=== PATIENT | female | born 1990 | race Caucasian/White ===

== ENCOUNTER → 2016-10-17 | Outpatient (CLI) | payer SELFPAY | LOC: LABWHC1 14:19 | PROVIDERS: ATTEND Family Medicine | DX: E04.9 Nontoxic goiter, unspecified (principal) | CPT/HCPCS: 36415; 84439; 84443; 86376; 86800 ==

== ENCOUNTER → 2016-10-31 | Outpatient (CLI) | payer SELFPAY ==
--- NOTE | 2016-11-01 09:18 | US ---
EXAMINATION TYPE: US thyroid st tissue head/neck DATE OF EXAM: 10/31/2016 4:46 PM COMPARISON: NONE CLINICAL HISTORY: E04.1 thyroid nodule. Palpable left anterior neck GLAND SIZE: Right Lobe: 5.1 x 1.2 x 1.6 cm Overall Parenchyma: homogenous Left Lobe: 4.4 x 2.0 x 2.2 cm Overall Parenchyma: homogeneous Isthmus Thickness: 0.3 cm NODULES RIGHT: # of nodules measured on right: 0 LEFT: # of nodules measured on left: 1 1. 2.1 X 1.8 x 1.7 cm isoechoic solid nodule at the mid pole with well-defined margins; . This nod ule is wider than tall and shows intranodular vascularity. Prior size: no prior ISTHMUS: # of nodules measured in the isthmus: 0 Bilateral neck scanned, no evidence of lymphadenopathy. IMPRESSION: 1. THYROMEGALY. 2. 2.1 CM LEFT-SIDED THYROID NODULE. CONSIDERATION MIGHT BE GIVEN TO BIOPSY.
== END ==
LOC: RADUSWWP 16:21
PROVIDERS: ATTEND Family Medicine
DX: E04.1 Nontoxic single thyroid nodule (principal); E01.0 Iodine-deficiency related diffuse (endemic) goiter
CPT/HCPCS: 76536

== ENCOUNTER 2017-01-06 12:22 | Day surgery (SDC) | payer SELFPAY ==
[2017-01-06 12:35] VITALS: RESP 14; TEMP 98.2
[2017-01-06 13:57] VITALS: BP 102/78; PULSE 61
--- NOTE | 2017-01-06 17:48 | US ---
EXAMINATION TYPE: US FNA thyroid DATE OF EXAM: 01/06/2017 COMPARISON: NONE HISTORY: Thyroid nodule, E04.1 Maximal barrier technique was utilized. Ultrasound using sterile technique. The skin overlying the no dule was localized with ultrasound and the overlying skin prepped and draped. Lidocaine used for loca l anesthesia. 5 passes with a 25-gauge needle were made into the nodule under ultrasound guidance. As pirate specimen submitted to cytology. Following the procedure hemostasis achieved. No immediate comp lication IMPRESSION: Status post ultrasound-guided fine-needle aspiration of thyroid nodule, pathology pending .
== END 2017-01-06 13:59 | disposition home or self-care (01) ==
LOC: RADPROMAIN 12:22
PROVIDERS: ATTEND Surgery
DX: E04.1 Nontoxic single thyroid nodule (principal)
CPT/HCPCS: 10022; 76942; 88173; 88305

== ENCOUNTER → 2017-06-20 | Outpatient (CLI) | payer SELFPAY ==
[2017-06-20 11:08] LABS: CHCM 33.6; HCT 33.2 % (34.0-46.0); HDW 2.41; HGB 10.8 gm/dL (11.4-16.0); MCH 30.9 pg (25.0-35.0); MCHC 32.4 g/dL (31.0-37.0); MCV 95.5 fL (80.0-100.0); Mean Platelet Volume 7.4; RBC 3.48 m/uL (3.80-5.40); RDW 12.5 % (11.5-15.5); WBC 4.8 k/uL (3.8-10.6)
[2017-06-20 11:12] LABS: Amorphous Sediment,Urine Occasional /hpf; Appearance,Urine Cloudy (Clear); Bilirubin,Urine Negative (Negative); Glucose,Urine (UA) Negative (Negative); Ketones,Urine Negative (Negative); Leukocyte Esterase,Urine Trace (Negative); Mucus,Urine Rare /hpf; Nitrite,Urine Negative (Negative); Particle Count 4467; Protein,Urine Negative (Negative); Specific Gravity,Urine 1.014 (1.001-1.035); Squamous Epithelial Cell,Urine 3 /hpf (0-4); UA Billing (MACRO vs. MICRO) MICRO; Urobilinogen,Urine <2.0 mg/dL (<2.0); WBC,Urine 2 /hpf (0-5)
[2017-06-20 11:22] LABS: Glucose 85 mg/dL (74-99); Non-African American GFR(MDRD) >60 (>60 ml/min/1.73 sqM)
[2017-06-20 16:05] LABS: Treponemal Ab Non-Reactive (Non-Reactive)
== END | disposition home or self-care (01) ==
LOC: LABWHC1 10:07
PROVIDERS: ATTEND Obstetrics & Gynecology
DX: Z34.81 Encounter for supervision of other normal pregnancy, first trimester (principal); Z3A.00 Weeks of gestation of pregnancy not specified
CPT/HCPCS: 36415; 81001; 82565; 82947; 85027; 86762; 86780; 86850; 86900; 86901; 87086; 87340

== ENCOUNTER → 2017-08-01 | Outpatient (CLI) | payer BC ==
[2017-08-04 10:11] LABS: Alpha Fetoprotein (M.O.M) 0.58; B-HCG (M.O.M.) 1.47; Gestational Age (days) 1; Human Chorionic Gonadotropin 32.1 IU/mL; Inhibin A (M.O.M.) 0.71; Maternal Age at EDD (Yrs) 29; Smoker No
== END | disposition home or self-care (01) ==
LOC: LABWHC1 09:58
PROVIDERS: ATTEND Obstetrics & Gynecology
DX: Z34.82 Encounter for supervision of other normal pregnancy, second trimester (principal); Z3A.00 Weeks of gestation of pregnancy not specified
CPT/HCPCS: 36415; 82105; 82677; 84702; 86336

== ENCOUNTER → 2017-08-06 | Outpatient (CLI) | payer BC ==
--- NOTE | 2017-08-06 11:21 | US ---
EXAMINATION TYPE: US thyroid st tissue head/neck DATE OF EXAM: 08/06/2017 COMPARISON: 01/06/2017 and 10/31/2016 CLINICAL HISTORY: E04.1 THYROID NODULE. Follow up thyroid nodule GLAND SIZE: Right Lobe: 5.9 x 1.7 x 1.9 cm Overall Parenchyma: homogenous Left Lobe: 5.5 x 2.0 x 1.9 cm Overall Parenchyma: homogeneous Isthmus Thickness: 0.3 cm NODULES RIGHT: # of nodules measured on right: 0 LEFT: # of nodules measured on left: 1 1. 2.4 X 1.9 x 1.8 cm isoechoic mixed nodule at the mid pole with well-defined margins; . This nod ule is wider than tall and shows intranodular vascularity. Prior size: 2.1 x 1.8 x 1.7 cm ISTHMUS: # of nodules measured in the isthmus: 0 Bilateral neck scanned, no evidence of lymphadenopathy. Enlarged thyroid. Single nodule noted left lobe IMPRESSION: Minimal interval growth of the previously biopsied left thyroid nodule on background thyromegaly. Handy veillance is recommended.
== END | disposition home or self-care (01) ==
LOC: RADUSWWP 10:13
PROVIDERS: ATTEND Surgery
DX: E04.1 Nontoxic single thyroid nodule (principal)
CPT/HCPCS: 76536

== ENCOUNTER 2017-08-28 12:08 | Day surgery (SDC) | payer BC ==
[2017-08-28 12:49] VITALS: TEMP 98
[2017-08-28 13:46] VITALS: RESP 16
[2017-08-28 13:47] VITALS: BP 99/54; PULSE 75
--- NOTE | 2017-08-28 14:31 | US ---
ULTRASOUND GUIDED FNA THYROID BIOPSY: CLINICAL HISTORY: Left thyroid nodule FINDINGS: The procedure was explained to the patient. The risks, complications, benefits and alternatives were discussed and any questions were answered. Informed consent was obtained. Patient was placed supin e on the ultrasound table and prepped and draped in the usual sterile fashion. Utilizing a 25 gauge needle, five passes were made into the requested left thyroid nodule. Patient was stable throughout the procedure. Pathology is pending. All elements of maximal barrier technique were utilized. IMPRESSION: 1. Successful ultrasound guided FNA thyroid biopsy.
== END 2017-08-28 13:50 | disposition home or self-care (01) ==
LOC: RADPROMAIN 12:08
PROVIDERS: ATTEND Surgery
DX: E04.1 Nontoxic single thyroid nodule (principal)
CPT/HCPCS: 10022; 76942; 88173; 88305

== ENCOUNTER → 2017-09-17 | Outpatient (CLI) | payer BC ==
[2017-09-17 11:12] LABS: HCT 30.6 % (34.0-46.0); HGB 9.8 gm/dL (11.4-16.0); MCH 31.6 pg (25.0-35.0); MCHC 32.2 g/dL (31.0-37.0); MCV 98.2 fL (80.0-100.0); Mean Platelet Volume 7.9; Platelet Count 260 k/uL (150-450); RBC 3.12 m/uL (3.80-5.40); RDW 12.9 % (11.5-15.5); WBC 7.3 k/uL (3.8-10.6)
[2017-09-17 11:41] LABS: T4, Free (Free Thyroxine) 0.75 ng/dL (0.78-2.19)
== END | disposition home or self-care (01) ==
LOC: LABWHC1 09:51
PROVIDERS: ATTEND Obstetrics & Gynecology
DX: Z34.82 Encounter for supervision of other normal pregnancy, second trimester (principal)
CPT/HCPCS: 36415; 82950; 84439; 84443; 84481; 85027

== ENCOUNTER → 2017-12-02 | Outpatient (CLI) | payer BC ==
[2017-12-02 11:26] LABS: T4, Free (Free Thyroxine) 0.68 ng/dL (0.78-2.19)
== END | disposition home or self-care (01) ==
LOC: LABWHC1 10:29
PROVIDERS: ATTEND Obstetrics & Gynecology
DX: E06.9 Thyroiditis, unspecified (principal)
CPT/HCPCS: 36415; 84439; 84443; 84481

== ENCOUNTER 2017-12-12 12:05 | Outpatient (CLI) | payer BC ==
[2017-12-12 13:26] VITALS: BP 112/68; PULSE 85; RESP 16; TEMP 98
--- NOTE | 2017-12-12 15:48 | P.MSEPDOC ---
Presenting Problems - Arrival Data Date of Arrival on Unit: 12/12/17 Time of Arrival on Unit: 12:05 Mode of Transport: Ambulatory - Complaint OB-Reason for Admission/Chief Complaint: Decreased Movement Medical History - Information : 6 Para: 2 Term: 2 : 2 Abortions: Spontaneous or Elective: 3 Number of Living Children: 2 - Gestational Age Gestational Age by NA (wks/days): 38 Weeks and 1 Days Review of Systems - Review of Systems Constitutional: No problems Breast: No problems ENT: No problems Cardiovascular: No problems Respiratory: No problems Gastrointestinal: No problems Genitourinary: No problems Musculoskeletal: No problems Neurological: No problems Skin: No problems Vital Signs - Temperature Temperature: 98.0 F Temperature Source: Temporal Artery Scan - Pulse Right Brachial Pulse Rate: 85 Pulse Assessment Method: Automatic Cuff - Respirations Respiratory Rate: 16 Oxygen Delivery Method: Room Air O2 Sat by Pulse Oximetry: 98 - Blood Pressure Right Arm Blood Pressure: 112/68 Blood Pressure Mean: 82 Blood Pressure Source: Automatic Cuff Medical Screen Scoring (Pre) - Cervical Exam Dilation: 1-3 cm = 1 Effacement: More than 50% = 2 Membranes: Intact - Uterine Contractions Frequency: > 5 minutes apart = 1 Duration: > 40 seconds = 2 Intensity: N/A - Maternal Vital Signs Maternal Temperature: N/A Maternal Blood Pressure: N/A Signs of Preeclampsia: N/A Maternal Respirations: N/A - Pain Assessment Pain Scale Used: Numeric (1 - 10) Pain Intensity: 0 - Maternal Trauma Maternal Trauma: N/A - Assessment Baseline FHR: 115 Heart Rate - NICHD Category: Category I (Normal) = 0 NST: Reactive Position: N/A Station: N/A - Total Score Total Score (Pre): 6 - Level of Risk Level of Risk: Medium (6-9) Physician Notification (Pre) - Physician Notified Physician Notified Date: 12/12/17 Physician Notified Time: 12:45 Physician/Practitioner Notifed:: Dr Peter Spoke With: Dr Peter New Order Received: Yes (ky home) - Notification Comment Comment: pts cervical exam same as one performed at last appt, pt has another appt scheduled Sunday 12/17 Disposition - Disposition OB Disposition: Discharge to home, Written follow up instructions reviewed Discharge Date: 05/25/18 Discharge Time: 12:47 I agree with the RN Medical Screening Exam: Yes Risk & Benefit of care provided described in d/c instruction: Yes Diagnosis: DECREASED MOVEMENTS, THIRD TRIMESTER, FETUS 1
== END 2017-12-12 12:47 | disposition home or self-care (01) ==
LOC: FBPOP 12:05
PROVIDERS: ATTEND Obstetrics & Gynecology
DX: O36.8130 Decreased fetal movements, third trimester, not applicable or unspecified (principal); Z3A.38 38 weeks gestation of pregnancy
CPT/HCPCS: 59025; 99213

== ENCOUNTER 2017-12-25 06:15 | Inpatient (IN) | payer BC ==
[2017-12-25] MEDS ORDERED: TERBUTALINE 1 MG/ML VIAL SQ PRN (07:04)
[2017-12-25] MEDS ORDERED: OXYTOCIN 10 UNIT/ML 1 ML VIAL IM PRN (07:04)
[2017-12-25] MEDS ORDERED: METHYLERGONOVINE 0.2 MG/ML 1 ML AMP IM PRN (07:04)
[2017-12-25] MEDS ORDERED: LIDOCAINE 1% (PF) 10 MG/ML (30 ML SDV) SQ PRN (07:04)
[2017-12-25] MEDS ORDERED: CARBOPROST TROMETHAMINE 250 MCG/ML 1 ML AMP IM PRN (07:04)
[2017-12-25] MEDS ORDERED: OXYTOCIN 20 UNITS/1000 ML NS 1,000 ML IV SCH (07:04)
[2017-12-25 07:24] LABS: Basophils % (A) 1 %; Eosinophils % (A) 1 %; HCT 29.1 % (34.0-46.0); HGB 9.7 gm/dL (11.4-16.0); Lymphocytes # (A) 1.3 k/uL (1.0-4.8); Lymphocytes % (A) 20 %; MCH 30.6 pg (25.0-35.0); MCHC 33.3 g/dL (31.0-37.0); Mean Platelet Volume 7.4; Monocytes # (A) 0.5 k/uL (0-1.0); Monocytes % (A) 7 %; Neutrophils # (A) 4.5 k/uL (1.3-7.7); Neutrophils % (A) 69 %; Platelet Count 227 k/uL (150-450); RBC 3.17 m/uL (3.80-5.40); RDW 14.2 % (11.5-15.5); WBC 6.5 k/uL (3.8-10.6)
[2017-12-25 07:38] VITALS: BMI 27.1
[2017-12-25] MEDS: LACTATED RINGERS 1,000 ML IV SCH ×2 (08:06→10:56)
[2017-12-25] MEDS ORDERED: fentaNYL (PF) 50 MCG/ML 5 ML AMP ONE (11:00)
[2017-12-25] MEDS ORDERED: BUPIVACAINE (PF) 0.25% 30 ML VIAL ONE (11:00)
[2017-12-25] MEDS ORDERED: SODIUM CHLORIDE 0.9% 100 ML BAG ONE (11:00)
[2017-12-25] MEDS ORDERED: ROPIVACAINE 100 MG, fentaNYL (PF) 200 MCG in SODIUM CHLORIDE 0.9% 76 ML EPIDURAL ONE (11:35)
[2017-12-25] MEDS ORDERED: diphenhydrAMINE 50 MG CAP PO PRN (13:06)
[2017-12-25] MEDS ORDERED: ZOLPIDEM 5 MG TAB PO PRN (13:06)
[2017-12-25] MEDS ORDERED: diphenhydrAMINE 25 MG CAP PO PRN (13:06)
[2017-12-25] MEDS ORDERED: WITCH HAZEL 1 EACH MED..PAD TOPICAL PRN (13:06)
[2017-12-25] MEDS ORDERED: ACETAMINOPHEN TAB 325 MG TAB PO PRN (13:06)
[2017-12-25] MEDS ORDERED: LANOLIN CREAM 5 GM TUBE TOPICAL PRN (13:06)
[2017-12-25] MEDS ORDERED: HYDROCORTISONE 2.5% RECTAL CREAM 30 GM TUBE RECTAL PRN (13:06)
[2017-12-25] MEDS ORDERED: SIMETHICONE 80 MG CHEWABLE PO PRN (13:06)
[2017-12-25] MEDS ORDERED: BENZOCAINE/MENTHOL SPRAY 1 GM/SPRAY AEROSOL TOPICAL PRN (13:06)
--- NOTE | 2017-12-25 13:20 | P.HPOB ---
History of Present Illness H&P Date: 12/25/17 Chief Complaint: Intrauterine at term Julieth is a 27-year-old at 40 weeks gestation arise for induction of labor. Her Precis course has been unremarkable and she is feeling well at this time. Her pertinent labs include a B+ blood type Rh and it was negative, rubella immune, hepatitis B surface antigen were both negative group B strep however was positive. Patient's been followed closely throughout the and voices no complaints this time. It is noted that she did have some thyroid issues during the however after discussion with maternal medicine was decided that since she was subclinical no treatment will be given during the but will be retested after she's had the baby. Past Medical History Past Medical History: Thyroid Disorder Additional Past Medical History / Comment(s): molar , frequent nausea, thyroid nodules History of Any Multi-Drug Resistant Organisms: None Reported Past Surgical History: Orthopedic Surgery Additional Past Surgical History / Comment(s): repair right arm fx, d&C Past Anesthesia/Blood Transfusion Reactions: No Reported Reaction Past Psychological History: No Psychological Hx Reported Smoking Status: Never smoker Past Alcohol Use History: None Reported, Occasional Past Drug Use History: None Reported - Past Family History Mother Family Medical History: Thyroid Disorder Medications and Allergies Home Medications Medication Instructions Recorded Confirmed Type Pnv No.95/Ferrous Fum/Folic AC 1 each PO DAILY 08/19/17 12/25/17 History [ Multivitamin Tablet] Allergies Allergy/AdvReac Type Severity Reaction Status Date / Time No Known Allergies Allergy Verified 01/06/17 12:38 Exam Osteopathic Statement: *. No significant issues noted on an osteopathic structural exam other than those noted in the History and Physical/Consult. - Vital Signs Vital signs: Vital Signs Temp Pulse Resp BP Pulse Ox 12/25/17 13:00 96.9 F L 70 18 108/61 12/25/17 07:01 98.7 F 86 16 114/57 100 Intake and Output 12/24/17 12/25/17 12/25/17 22:59 06:59 14:59 Intake Total 14.75 Balance 14.75 Intake: Intake, IV Titration 14.75 Amount Oxytocin 20 Units/1000 ml 14.75 Ns 1,000 ml @ 1 MILLIUNIT/MIN 3 mls/hr IV .Q24H SHARON Rx#:[id number] Other: Weight 71.668 kg - OBG Physical Exam Breast: both: normal (no masses) Abdomen: bowel sounds normal, no diffuse tenderness, no bruit present, no guarding noted, no hepatomegaly, no splenomegaly, no mass Vulva: both: normal Vagina: normal moisture, no discharge Cervix: 3 cm dilated 80% effaced -2 station heart tones in the 112 and reactive Cervix: no lesion, no discharge Uterus: normal size, normal contour Adnexa: both: normal Anus/Rectum: normal perianal skin, no rectal mass, no hemorrhoids, heme negative Results Result Diagrams: 12/25/17 07:00 Abnormal Lab Results - Last 24 Hours (Table) 12/25/17 Range/Units 07:00 RBC 3.17 L (3.80-5.40) m/uL Hgb 9.7 L (11.4-16.0) gm/dL Hct 29.1 L (34.0-46.0) %
--- NOTE | 2017-12-25 13:21 | P.PROBDLV ---
Vaginal Delivery Note - . Vaginal Delivery Note: Patient progressed complete and pushing with spontaneous vaginal delivery of a viable female over a first repair laceration. Falling deliver the head interim posterior shoulders were delivered with the baby being delivered through a nuchal cord 1 without difficulty. Baby was delivered from left occiput transverse position. Once baby was alert mouth nares were bulb suctioned and baby was placed on mother's abdomen where the umbilical cord was clamped cut usual fashion. Nursery personnel was then present to assume care. Placenta was then delivered intact and Pitocin was added to the IV. One interrupted suture was placed at 6:00 for the first repair laceration and 3 interrupted sutures were placed superiorly just under the clitoris due to a periclitoral laceration. Once this was accomplished incidents were all correct 2. scores 9 and 9 at one and 5 minutes respectively and the weight was 7 lbs. 10 oz. Mother and baby are stable for delivery.
[2017-12-25] MEDS: IBUPROFEN 600 MG TAB PO PRN (18:29)
[2017-12-25] MEDS ORDERED: SENNOSIDES-DOCUSATE SODIUM 1 EACH TAB PO SCH (20:00)
[2017-12-26] MEDS: IBUPROFEN 600 MG TAB PO PRN ×2 (00:28→07:45)
[2017-12-26 07:24] LABS: Basophils % (A) 0 %; Eosinophils # (A) 0.1 k/uL (0-0.7); Eosinophils % (A) 1 %; HCT 30.9 % (34.0-46.0); Lymphocytes # (A) 1.4 k/uL (1.0-4.8); Lymphocytes % (A) 14 %; MCH 30.7 pg (25.0-35.0); MCHC 32.3 g/dL (31.0-37.0); MCV 94.9 fL (80.0-100.0); Mean Platelet Volume 7.6; Monocytes # (A) 0.7 k/uL (0-1.0); Monocytes % (A) 7 %; Neutrophils # (A) 7.9 k/uL (1.3-7.7); Neutrophils % (A) 76 %; Platelet Count 265 k/uL (150-450); RBC 3.25 m/uL (3.80-5.40); RDW 14.2 % (11.5-15.5); WBC 10.4 k/uL (3.8-10.6)
--- NOTE | 2017-12-26 08:56 | P.DS ---
Providers Date of admission: 12/25/17 06:30 Expected date of discharge: 12/26/17 Attending physician: Will Peter [facility] Course: Julieth is doing very well day 1. She is involuting, voiding, and she is tolerating her diet. She voices no complaint. Vital signs are stable and afebrile. Heart regular, lungs clear, extremities are without pain. Abdomen soft uterus is firm below the umbilicus and lochia is reported be light. Assessment day 1. Plan discharged home follow up with me in 6 weeks. All the questions are answered for her at this time she is stable at this time for discharge. Patient Condition at Discharge: Good Plan - Discharge Summary New Discharge Prescriptions: No Action Pnv No.95/Ferrous Fum/Folic AC [ Multivitamin Tablet] 1 each PO DAILY Discharge Medication List Pnv No.95/Ferrous Fum/Folic AC [ Multivitamin Tablet] 1 each PO DAILY [History] Follow up Appointment(s)/Referral(s): Will Peter DO [Doctor of Osteopathic Medicine] - 1 Week Activity/Diet/Wound Care/Special Instructions: No heavy lifting, limit stairs and driving, and pelvic rest. If any high temperatures, heavy bleeding, or severe pain call my office Discharge Disposition: HOME SELF-CARE
[2017-12-26 09:50] VITALS: BP 104/61; PULSE 62; RESP 46; TEMP 98.7
== END 2017-12-26 14:01 | disposition home or self-care (01) | DRG 775 ==
LOC: EDSTATUS 06:15 → 4FBP 06:30
PROVIDERS: ADMIT Obstetrics & Gynecology; ATTEND Obstetrics & Gynecology
PROC: 3E0R3NZ Introduction of Analgesics, Hypnotics, Sedatives into Spinal Canal, Percutaneous Approach (ICD-10-PCS; principal; 2017-12-25)
PROC: 0HQ9XZZ Repair Perineum Skin, External Approach (ICD-10-PCS; principal; 2017-12-25)
PROC: 10E0XZZ Delivery of Products of Conception, External Approach (ICD-10-PCS; principal; 2017-12-25)
PROC: 10907ZC Drainage of Amniotic Fluid, Therapeutic from Products of Conception, Via Natural or Artificial Opening (ICD-10-PCS; principal; 2017-12-25)
PROC: 3E033VJ Introduction of Other Hormone into Peripheral Vein, Percutaneous Approach (ICD-10-PCS; principal; 2017-12-25)
PROC: 00HU33Z Insertion of Infusion Device into Spinal Canal, Percutaneous Approach (ICD-10-PCS; principal; 2017-12-25)
DX: O48.0 Post-term pregnancy (principal); Z37.0 Single live birth; Z3A.40 40 weeks gestation of pregnancy; O70.0 First degree perineal laceration during delivery; O69.81X0 Labor and delivery complicated by cord around neck, without compression, not applicable or unspecified
CPT/HCPCS: 85025; 88307

== ENCOUNTER → 2018-02-20 | Outpatient (CLI) | payer BC ==
[2018-02-20 09:18] LABS: Basophils % (A) 0 %; Eosinophils # (A) 0.1 k/uL (0-0.7); Eosinophils % (A) 2 %; HCT 35.7 % (34.0-46.0); HGB 11.3 gm/dL (11.4-16.0); Lymphocytes # (A) 1.6 k/uL (1.0-4.8); Lymphocytes % (A) 34 %; MCH 29.1 pg (25.0-35.0); MCHC 31.5 g/dL (31.0-37.0); MCV 92.2 fL (80.0-100.0); Mean Platelet Volume 7.7; Monocytes # (A) 0.3 k/uL (0-1.0); Monocytes % (A) 6 %; Neutrophils # (A) 2.7 k/uL (1.3-7.7); Neutrophils % (A) 56 %; Platelet Count 267 k/uL (150-450); RBC 3.87 m/uL (3.80-5.40); WBC 4.8 k/uL (3.8-10.6)
[2018-02-20 10:25] LABS: T4, Free (Free Thyroxine) 0.95 ng/dL (0.78-2.19)
== END | disposition home or self-care (01) ==
LOC: LABPAT 09:05
PROVIDERS: ATTEND Obstetrics & Gynecology
DX: Z01.812 Encounter for preprocedural laboratory examination (principal)
CPT/HCPCS: 36415; 84439; 84443; 84481; 85025

== ENCOUNTER 2018-02-24 06:12 | Day surgery (SDC) | payer BC ==
[2018-02-18 14:31] VITALS: BMI 23.1
--- NOTE | 2018-02-20 13:28 | P.HPOB ---
History of Present Illness H&P Date: 02/20/18 Chief Complaint: Family planning Julieth is a 27-year-old who has completed her family planning and desires permanent sterilization. Risks/benefits/alternatives to a laparoscopic tubal occlusion were discussed with the patient in detail and all questions were answered for her prior to proceeding to the operating room. She is aware that this is designed to be a permanent procedure. Past Medical History Past Medical History: Thyroid Disorder Additional Past Medical History / Comment(s): hx molar , thyroid nodules, anemia History of Any Multi-Drug Resistant Organisms: None Reported Past Surgical History: Orthopedic Surgery Additional Past Surgical History / Comment(s): repair right arm fx as child, D&C Past Anesthesia/Blood Transfusion Reactions: No Reported Reaction Smoking Status: Never smoker - Past Family History Mother Family Medical History: No Reported History Medications and Allergies Home Medications Medication Instructions Recorded Confirmed Type Ferrous Sulfate [Feosol] 325 mg PO DAILY 02/18/18 02/18/18 History RX: Citalopram Hydrobromide 20 mg PO HS 02/18/18 02/18/18 History [CeleXA] Allergies Allergy/AdvReac Type Severity Reaction Status Date / Time No Known Allergies Allergy Verified 02/18/18 14:26 Exam Osteopathic Statement: *. No significant issues noted on an osteopathic structural exam other than those noted in the History and Physical/Consult. - OBG Physical Exam Breast: both: normal (no masses) Abdomen: bowel sounds normal, no diffuse tenderness, no bruit present, no guarding noted, no hepatomegaly, no splenomegaly, no mass Vulva: both: normal Vagina: normal moisture, no discharge Cervix: no lesion, no discharge Uterus: normal size, normal contour Adnexa: both: normal Anus/Rectum: normal perianal skin, no rectal mass, no hemorrhoids, heme negative
[~2018-02-24 06:12] MED LIST: DEXAMETHASONE SOD PHOSPHATE 10 MG/ML 1 ML VIAL IV ONE; LACTATED RINGERS 1,000 ML IV SCH; MIDAZOLAM 2 MG/2 ML VIAL IV PRN; ONDANSETRON 4 MG/2 ML VIAL IVP ONE; Pre Op ABX Message 1 EACH MISC MISCELLANE ONE; SCOPOLAMINE 1.5MG/72HR PATCH TRANSDERM ONE
[2018-02-24] MEDS ORDERED: LIDOCAINE 1% 20 ML VIAL (10MG/ML) FOR IV START INTRADERMA ONE (06:42)
[2018-02-24 06:51] VITALS: RESP 16
[2018-02-24] MEDS ORDERED: fentaNYL (PF) 50 MCG/ML 2 ML AMP ONE (07:32)
[2018-02-24] MEDS ORDERED: MIDAZOLAM 2 MG/2 ML VIAL ONE (07:32)
[2018-02-24] MEDS ORDERED: KETOROLAC 30 MG/ML 1 ML VIAL ONE (07:32)
[2018-02-24] MEDS ORDERED: LIDOCAINE 1% INJ 10MG/ML (20 ML MDV) ONE (07:32)
[2018-02-24] MEDS ORDERED: SUCCINYLCHOLINE CHLORIDE 100 MG/5 ML SYR IV ONE (07:32)
[2018-02-24] MEDS ORDERED: PROPOFOL 10 MG/ML 20 ML VIAL IV ONE (07:32)
[2018-02-24] MEDS ORDERED: ROPIVACAINE 5 MG/ML 30 ML VIAL MISCELLANE ONE ×2 (07:52→08:00)
[2018-02-24] MEDS ORDERED: LACTATED RINGERS 1,000 ML IV ONE (08:08)
--- NOTE | 2018-02-24 08:09 | P.OP ---
Date of Procedure: 02/24/18 Preoperative Diagnosis: Family planning Postoperative Diagnosis: Same Procedure(s) Performed: Laparoscopic tubal occlusion with Filshie clips Anesthesia: PER Surgeon: Will Peter Estimated Blood Loss (ml): 5 IV fluids (ml): 700 Urine output (ml): 20 Pathology: none sent Condition: stable Disposition: same day Operative Findings: Normal female pelvic anatomy Description of Procedure: Patient was taken to the operating suite where a general anesthetic was found be adequate. She was prepped and draped in the normal sterile fashion and placed in the dorsal lithotomy position. Initially a speculum was inserted into the vagina and the anterior lip of cervix was grasped with an Allis clamp and sounded to 8 cm. Uterine manipulator was inserted without difficulty other instruments removed and a red rubber catheter was used to drain the bladder urine. She was accomplished it was removed and gloves were changed. Attention was then turned to the abdominal portion procedure where 2 mL of local anesthetic was injected periumbilically. Through this injected anesthetic a 5 mm skin incision was made and through this incision under direct visualization with an optical trocar and sleeve the camera was inserted. Once peritoneal placement was assured gas was left fully insufflate the abdomen and patient was then placed in steep Trendelenburg position. Second 8 mm skin incision was then made 3 cm above the pubic symphysis in the midline. Through this incision a second port and sleeve were inserted under direct visualization. Observations of the pelvis were then noted. Once this was accomplished first the right fallopian tube than left fallopian tube had a Filshie clip applied between 2 and 3 cm from the uterine cornu. With no bleeding from the mesosalpinx instruments were removed and gas was allowed to fully expel from the abdomen. 5 deep breaths were provided during this process. Once accomplished, ports were removed and 4-0 Vicryl was used to close incision subcuticularly. Another 3-5 mL of the local anesthetic was then injected around these incisions and instruments were removed from the vagina. Sponge, lap, needle counts were all correct 2. Patient was then taken to the recovery room in stable and satisfactory condition. Plan - Discharge Summary New Discharge Prescriptions: New Ibuprofen [Motrin] 600 mg PO Q6HR PRN #30 tab PRN Reason: Pain No Action Ferrous Sulfate [Feosol] 325 mg PO DAILY Citalopram Hydrobromide [CeleXA] 20 mg PO HS Discharge Medication List Citalopram Hydrobromide [CeleXA] 20 mg PO HS 02/18/18 [History] Ferrous Sulfate [Feosol] 325 mg PO DAILY 02/18/18 [History] Ibuprofen [Motrin] 600 mg PO Q6HR PRN #30 tab 02/24/18 [Rx] Follow up Appointment(s)/Referral(s): Will Peter DO [Doctor of Osteopathic Medicine] - 2 Weeks Activity/Diet/Wound Care/Special Instructions: No heavy lifting, limit stairs and driving today, pelvic rest. If any high temperatures, heavy bleeding, or severe pain call my office
[2018-02-24 08:30] VITALS: TEMP 97.4
[2018-02-24] MEDS: fentaNYL (PF) 50 MCG/ML 2 ML AMP IV PRN ×2 (08:35→08:51)
[2018-02-24] MEDS: HYDROmorphone 1 MG/ML 1 ML SYRINGE IVP ONE ×2 (09:06→09:11)
[2018-02-24 10:02] VITALS: BP 125/70; PULSE 57
== END 2018-02-24 10:24 | disposition home or self-care (01) ==
LOC: OR 06:12
PROVIDERS: ATTEND Obstetrics & Gynecology
DX: Z30.2 Encounter for sterilization (principal); F53 Mental and behavioral disorders associated with the puerperium, not elsewhere classified; Z79.899 Other long term (current) drug therapy
CPT/HCPCS: 81025; 58671; J2250; J1100; J2405; J2001; J3010; J1885; J1170; J2795; J0330; J2704

== ENCOUNTER → 2020-02-15 | Outpatient (CLI) | payer BC | LOC: LABWHC1 10:53 | PROVIDERS: ATTEND Family Medicine | DX: Z20.828 Contact with and (suspected) exposure to other viral communicable diseases (principal) | CPT/HCPCS: U0003; C9803 ==

== ENCOUNTER → 2021-02-12 | Outpatient (CLI) | payer BC ==
--- NOTE | 2021-02-13 10:14 | ECHOF ---
Referral Reason:R07.9 MEASUREMENTS -------- HEIGHT: 162.6 cm WEIGHT: 61.2 kg BP: RVIDd: 2.9 cm (< 3.3) IVSd: 0.9 cm (0.6 - 1.1) LVIDd: 4.1 cm (3.9 - 5.3) LVPWd: 1.0 cm (0.6 - 1.1) IVSs: 1.2 cm LVIDs: 2.8 cm LVPWs: 1.2 cm LAESV Index (A-L): 22.41 ml/m Ao Diam: 2.5 cm (2.0 - 3.7) AV Cusp: 1.9 cm (1.5 - 2.6) MV EXCURSION: 14.577 mm (> 18.000) MV EF SLOPE: 93 mm/s (70 - 150) EPSS: 0.3 cm MV E Colin: 0.78 m/s MV DecT: 191 ms MV A Oclin: 0.70 m/s MV E/A Ratio: 1.12 RAP: 5.00 mmHg RVSP: 20.73 mmHg FINDINGS -------- Sinus rhythm. This was a technically good study. LV size, wall thickness and systolic function are normal, with an EF greater than 55%. The left mike tricular size is normal. The right ventricle is normal in size. The left atrial size is normal. The right atrial size is normal. The aortic valve is trileaflet, and appears structurally normal. No aortic stenosis or regurgitation. Mild mitral regurgitation is present. Mild tricuspid regurgitation present. Right ventricular systolic pressure is normal at < 35 mmHg. There is no pulmonic regurgitation present. There is no pericardial effusion. CONCLUSIONS -------- 1. LV size, wall thickness and systolic function are normal, with an EF greater than 55%. 2. The left ventricular size is normal. 3. The right ventricle is normal in size. 4. The left atrial size is normal. 5. The right atrial size is normal. 6. The aortic valve is trileaflet, and appears structurally normal. No aortic stenosis or regurgitati on. 7. Mild mitral regurgitation is present. 8. Mild tricuspid regurgitation present. TOLL LINE INSPECTOR: Shaina Almanza RDCS
== END | disposition home or self-care (01) ==
LOC: RADECHMAIN 14:47
PROVIDERS: ATTEND Family Medicine
DX: I08.1 Rheumatic disorders of both mitral and tricuspid valves (principal)
CPT/HCPCS: 93306

== ENCOUNTER → 2021-05-24 | Outpatient (CLI) | payer BC ==
--- NOTE | 2021-05-25 07:56 | US ---
EXAMINATION TYPE: US thyroid st tissue head/neck DATE OF EXAM: 05/24/2021 COMPARISON: NONE CLINICAL HISTORY: E04.1 nontoxic single thyroid nodule. f/u exam GLAND SIZE: Right Lobe: 5.8 x 1.9 x 1.6 cm Overall Parenchyma: homogenous Left Lobe: 5.6 x 1.8 x 1.8 cm Overall Parenchyma: heterogeneous Isthmus Thickness: 0.3 cm NODULES RIGHT: # of nodules measured on right: 0 LEFT: # of nodules measured on left: 1 - previous biopsy 2018 1. 1.5 X 1.3 x 1.0 cm, mid, solid or almost completely solid, hypoechoic nodule, which is wider alfonso n tall, with smooth margins, without echogenic foci. Prior size: 2.4 x 1.9 x 1.8 cm ISTHMUS: # of nodules measured in the isthmus: 0 Bilateral neck scanned, no evidence of lymphadenopathy. IMPRESSION: Moderately suspicious nodule, previous biopsy of 2018 decreasing in size from comparison. Follow-up e xam in 2 years is recommended. 2017 ACR TI-RADS LEVEL: TR-RADS 4 - Moderately Suspicious: Follow if > 1 cm, FNA if > 1.5 cm *Highest TI-RADS level nodule reported
== END | disposition home or self-care (01) ==
LOC: RADUSWWP 16:17
PROVIDERS: ATTEND Surgery Plastic and Reconstructive Surgery
DX: E04.1 Nontoxic single thyroid nodule (principal)
CPT/HCPCS: 76536

== ENCOUNTER 2021-06-25 12:16 | Day surgery (SDC) | payer BC ==
[2021-06-25 12:38] VITALS: RESP 16; TEMP 98.1
[2021-06-25 13:50] VITALS: BP 114/66; PULSE 65
--- NOTE | 2021-06-25 17:15 | US ---
EXAMINATION TYPE: US FNA thyroid first lesion DATE OF EXAM: 06/25/2021 COMPARISON: NONE HISTORY: Thyroid nodule. Maximal barrier technique was utilized. After informed consent, skin overlying the lesion was locali zed with ultrasound and the overlying skin prepped and draped. Ultrasound was utilized using sterile technique. Lidocaine was used for local anesthesia. Five passes with a 25-gauge needle were made int o the left-sided thyroid nodule and aspirated specimen was submitted to cytology. Following the proc edure hemostasis achieved. No immediate complication. The patient discharged in stable condition. IMPRESSION: STATUS POST ULTRASOUND GUIDED FINE NEEDLE ASPIRATION OF THYROID NODULE, PATHOLOGY IS PEND ING. THIS PROCEDURE WAS PERFORMED BY THE UNDERSIGNED.
== END 2021-06-25 13:40 | disposition home or self-care (01) ==
LOC: RADPROMAIN 12:16
PROVIDERS: ATTEND Surgery Plastic and Reconstructive Surgery
DX: E04.1 Nontoxic single thyroid nodule (principal)
CPT/HCPCS: 10005; 88173; 88305

== ENCOUNTER → 2021-07-27 | Outpatient (CLI) | payer SELFPAY ==
[2021-07-27 11:31] LABS: Partial Thromboplastin Time 24.2 sec (22.0-30.0)
[2021-07-27 12:30] LABS: Prothrombin Time 10.9 sec (9.0-12.0)
[2021-07-27 14:51] LABS: HGB 10.7 g/dL (12.0-15.0); MCH 30.7 pg (27.0-32.0); MCHC 31.5 g/dL (32.0-37.0); MCV 97.7 fL (80.0-97.0); Mean Platelet Volume 10.8 fL (9.5-12.2); Platelet Count 282 X 10*3/uL (140-440); RBC 3.48 X 10*6/uL (4.10-5.20); WBC 4.78 X 10*3/uL (4.50-10.00)
[2021-07-27 18:08] LABS: Folate, Serum >20.00 ng/mL (4.40-31.00)
[2021-07-27 21:18] LABS: Ferritin 40.5 ng/mL (10.0-291.0); Iron 107 ug/dL (50-170); Magnesium 2.2 mg/dL (1.5-2.4); Prealbumin 23.7 mg/dL (18.0-42.0)
[2021-07-27 21:38] LABS: % Iron Saturation 26.91 (12.00-45.00); ALT 16 U/L (8-44); AST 19 U/L (13-35); African American GFR (CKD) 121.1 (60.0-200.0); Albumin 4.6 g/dL (3.8-4.9); Alkaline Phosphatase 61 U/L (41-126); BUN/Creat Ratio 19.71 Ratio (12.00-20.00); Blood Urea Nitrogen 14.9 mg/dL (9.0-27.0); Calcium 9.7 mg/dL (8.7-10.3); Carbon Dioxide 18.4 mmol/L (20.0-27.5); Chloride 105 mmol/L (96-109); Chol/HDL Ratio 2.83 Ratio; Globulin 2.7 g/dL (1.6-3.3); Glucose 81 mg/dL (70-110); LDL Cholesterol,Calculated 105.8 mg/dL (0.0-131.0); Non-African American GFR(CKD) 104.5 (60.0-200.0); Potassium 4.1 mmol/L (3.5-5.5); Sodium 141 mmol/L (135-145); Total Iron Binding Capacity 398 ug/dL (228-460); Total Protein 7.2 g/dL (6.2-8.2); VLDL Calculation 15.66 mg/dL (5.00-40.00)
[2021-07-30 14:02] LABS: Zinc, Serum 73 ug/dL (60-130)
[2021-07-31 06:15] LABS: Vitamin A 44 ug/dL (38-106)
[2021-07-31 11:49] LABS: Vit B1(Thiamine) 61 ug/L (38-122)
== END | disposition home or self-care (01) ==
LOC: LABWHC1 09:42
PROVIDERS: ATTEND Surgery Plastic and Reconstructive Surgery
DX: E66.01 Morbid (severe) obesity due to excess calories (principal); E21.1 Secondary hyperparathyroidism, not elsewhere classified; E89.1 Postprocedural hypoinsulinemia; D50.8 Other iron deficiency anemias; E44.0 Moderate protein-calorie malnutrition; E55.9 Vitamin D deficiency, unspecified; K74.1 Hepatic sclerosis; N19 Unspecified kidney failure; K50.90 Crohn's disease, unspecified, without complications
CPT/HCPCS: 36415; 80053; 80061; 82306; 82525; 82607; 82728; 82746; 83036; 83540; 83550; 83735; 83970; 84100; 84134; 84255; 84425; 84443; 84590; 84630; 85027; 85610; 85730

== ENCOUNTER → 2022-08-09 | Outpatient (CLI) | payer OTHER ==
--- NOTE | 2022-08-09 12:09 | US ---
EXAMINATION TYPE: US pelvis complete transvag DATE OF EXAM: 08/09/2022 COMPARISON: OB US 2016 CLINICAL HISTORY: N92.0 EXCESSIVE AND FREQUENT MENSTRUATION WITH REG. Heavy periods. Hx 2 miscarriage s, tubal ligation. . TECHNIQUE: Transvaginal (TV) and Transabdominal (TA) . Transabdominal sonographic images of the pel vis were acquired. Transvaginal sonographic images were medically necessary to better assess the fol lowing anatomy: endometrium Date of LMP: 07/23/2022 EXAM MEASUREMENTS: Uterus: 9.0 x 5.2 x 4.3 cm Endometrial Stripe: 1.02 cm Right Ovary: 3.1 x 1.8 x 1.9 cm Left Ovary: 4.2 x 2.2 x 2.3 cm 1. Uterus: Anteverted Appears heterogeneous. 2. Endometrium: Measures 1.02 cm. Hypoechoic area seen anteriorly: 0.8 x 1.4 x 0.3 cm. 3. Right Ovary: Follicles seen. 4. Left Ovary: Complex area seen within: 1.2 x 0.9 x 1.0 cm. 5. Bilateral Adnexa: Prominent vessels seen within right adnexa: 0.64 cm. *Possible complex fluid seen within left adnexa adjacent to left ovary: 2.4 x 2.0 x 1.2 cm. 6. Posterior cul-de-sac: Fluid seen. IMPRESSION: 1. Heterogenous uterus which can be seen with fibroid changes versus adenomyosis. 2. Heterogenous hypoechoic area seen within the anterior aspect of the endometrium which could repre sent a submucosal fibroid versus other etiologies. Consider further evaluation with direct visualizat ion versus hysterosonography. 3. Complex 1.2 cm lesion demonstrated with the left ovary likely representing a hemorrhagic cyst. Fo llow-up ultrasound in 6-12 weeks is recommended to assess for resolution. 4. Complex fluid seen within the left adnexa which may be from a ruptured hemorrhagic cyst. Attentio n on follow-up ultrasound.
== END | disposition home or self-care (01) ==
LOC: RADUSWWP 11:11
PROVIDERS: ATTEND Obstetrics & Gynecology
DX: N83.8 Other noninflammatory disorders of ovary, fallopian tube and broad ligament (principal); N92.0 Excessive and frequent menstruation with regular cycle
CPT/HCPCS: 76830; 76856

== ENCOUNTER → 2022-10-30 | Outpatient (CLI) | payer BC ==
[2022-10-30 15:27] LABS: Basophils # (A) 0.02 X 10*3/uL (0.00-0.10); Basophils % (A) 0.5 %; Eosinophils # (A) 0.07 X 10*3/uL (0.04-0.35); Eosinophils % (A) 1.9 %; HCT 34.8 % (37.2-46.3); HGB 11.3 g/dL (12.0-15.0); Immature Grans, Automated 0.5 %; Lymphocytes % (A) 34.4 %; MCH 31.7 pg (27.0-32.0); MCHC 32.5 g/dL (32.0-37.0); MCV 97.8 fL (80.0-97.0); Mean Platelet Volume 10.9 fL (9.5-12.2); Monocytes # (A) 0.38 X 10*3/uL (0.20-1.00); Monocytes % (A) 10.1 %; NRBC Per 100 WBC 0 /100 WBCS (0.0-0.0); Neutrophils # (A) 1.99 X 10*3/uL (1.80-7.70); Neutrophils % (A) 52.6 %; Platelet Count 265 X 10*3/uL (140-440); RBC 3.56 X 10*6/uL (4.10-5.20); RDW 12.5 % (11.5-14.5); WBC 3.78 X 10*3/uL (4.50-10.00)
== END | disposition home or self-care (01) ==
LOC: LABPAT 09:13
PROVIDERS: ATTEND Obstetrics & Gynecology
DX: Z01.812 Encounter for preprocedural laboratory examination (principal)
CPT/HCPCS: 85025

== ENCOUNTER 2022-10-31 06:23 | Day surgery (SDC) | payer BC ==
[2022-10-29 15:57] VITALS: BMI 24.0
--- NOTE | 2022-10-30 07:36 | P.HPOB ---
History of Present Illness H&P Date: 10/30/22 Chief Complaint: Menorrhagia. This patient is a pleasant 31-year-old 6 para 3 female who presented to my office with complaints of heavy menstrual bleeding and secondary anemia. This is been a long ongoing process and patient has received multiple iron infusions. Patient's evaluations included a pelvic ultrasound which was normal. Patient has had a tubal ligation for control and is desiring endometrial ablation for treatment. Review of Systems Genitourinary: Reports as per HPI, Reports menorrhagia Past Medical History Past Medical History: Thyroid Disorder Additional Past Medical History / Comment(s): Hx molar , thyroid nodules, anemia. History of Any Multi-Drug Resistant Organisms: None Reported Past Surgical History: Orthopedic Surgery, Tubal Ligation Additional Past Surgical History / Comment(s): Repair right arm fracture as child, D&C. Past Anesthesia/Blood Transfusion Reactions: No Reported Reaction Past Psychological History: Depression Smoking Status: Never smoker Past Alcohol Use History: Occasional Past Drug Use History: None Reported - Past Family History Mother Family Medical History: No Reported History Medications and Allergies Home Medications Medication Instructions Recorded Confirmed Type Collagen Supplement 1 dose PO DAILY 10/29/22 10/29/22 History Escitalopram Oxalate [Lexapro] 10 mg PO HS 10/29/22 10/29/22 History Iron Supplement - Liquid 1 dose PO DAILY 10/29/22 10/29/22 History Levothyroxine Sodium 25 mcg PO QAM 10/29/22 10/29/22 History Multivit with Calcium,Iron,Min 1 each PO DAILY 10/29/22 10/29/22 History [Women's Multivitamin] Thornton Complex 1 tab PO DAILY 10/29/22 10/29/22 History Vitamin B Complex 1 each PO DAILY 10/29/22 10/29/22 History Vitamin C Liquid 1 dose PO DAILY 10/29/22 10/29/22 History Allergies Allergy/AdvReac Type Severity Reaction Status Date / Time No Known Allergies Allergy Verified 10/29/22 15:48 Exam Intake and Output 10/29/22 10/30/22 10/30/22 22:59 06:59 14:59 Other: Weight 63.503 kg - OBG Physical Exam Abdomen: bowel sounds normal, no diffuse tenderness, no bruit present, no guarding noted, no hepatomegaly, no splenomegaly, no mass Vulva: both: normal Vagina: normal moisture, no discharge Cervix: no lesion, no discharge Uterus: normal size, normal contour Results Patient had a transvaginal ultrasound on September 20 which was normal. Assessment and Plan Assessment: This is a pleasant 31-year-old 6 para 3 female with long-standing menorrhagia and secondary anemia as required iron infusions. Patient's evaluation has been negative she is requesting NovaSure endometrial ablation at this time. Plan is hysteroscopy, D&C, and endometrial ablation. Patient understands this procedure and risks and risks of infection, bleeding, possible uterine perforation, and/or thermal injury. All the patient's questions are answered and a written consent is obtained. (1) Menorrhagia Status: Acute Code(s): N92.0 - EXCESSIVE AND FREQUENT MENSTRUATION WITH REGULAR CYCLE SNOMED Code(s): 136945885 (2) Secondary anemia Status: Acute Code(s): D64.9 - ANEMIA, UNSPECIFIED SNOMED Code(s): 841269841
[~2022-10-31 06:23] MED LIST changes: -DEXAMETHASONE SOD PHOSPHATE 10 MG/ML 1 ML VIAL IV ONE; -LACTATED RINGERS 1,000 ML IV SCH; -MIDAZOLAM 2 MG/2 ML VIAL IV PRN; -ONDANSETRON 4 MG/2 ML VIAL IVP ONE; -SCOPOLAMINE 1.5MG/72HR PATCH TRANSDERM ONE
[2022-10-31] MEDS ORDERED: ONDANSETRON 4 MG/2 ML VIAL IVP ONE (06:36)
[2022-10-31] MEDS ORDERED: DEXAMETHASONE SOD PHOSPHATE 4 MG/ML 1 ML VIAL IV ONE (06:36)
[2022-10-31] MEDS ORDERED: LACTATED RINGERS 1,000 ML IV SCH (06:36)
[2022-10-31] MEDS ORDERED: HYDROmorphone 0.5 MG/0.5 ML SYRINGE IVP PRN (06:36)
[2022-10-31 06:54] VITALS: TEMP 97.8
[2022-10-31] MEDS ORDERED: MIDAZOLAM 2 MG/2 ML VIAL ONE (07:17)
[2022-10-31] MEDS ORDERED: KETOROLAC 15 MG/ML 1 ML VIAL ONE (07:17)
[2022-10-31] MEDS ORDERED: PROPOFOL 10 MG/ML 20 ML VIAL IV ONE (07:17)
[2022-10-31] MEDS ORDERED: fentaNYL (PF) 50 MCG/ML 2 ML AMP ONE (07:17)
[2022-10-31] MEDS ORDERED: LIDOCAINE 2% INJ 20 MG/ML (2 ML VIAL) ONE (07:17)
--- NOTE | 2022-10-31 07:52 | P.OP ---
Date of Procedure: 10/31/22 Preoperative Diagnosis: #1: Menorrhagia. #2: Secondary anemia Postoperative Diagnosis: Same Procedure(s) Performed: #1: Hysteroscopy. #2: Dilation and curettage. #3: NovaSure endometrial ablation Anesthesia: other (LMA) Surgeon: Jean-Claude Barker Estimated Blood Loss (ml): 10 Urine output (ml): 25 Pathology: other (Uterine curettings) Condition: stable Disposition: PACU Indications for Procedure: Please see dictated H&P for intimate details of this patient's admission. In brief summary this is a pleasant 31-year-old multipara risks patient who has had long-standing menorrhagia and secondary anemia. Patient is requesting NovaSure endometrial ablation for treatment. She understands this procedure and risks and risks of infection, bleeding, possible uterine perforation, and/or thermal injury. All the patient's questions are answered and a written consent is obtained. Operative Findings: This patient had a normal-appearing endometrial cavity. Description of Procedure: This patient is taken to the operating room where she is laid in the supine position. She subsequently undergoes general anesthesia without incident. With an adequate level of anesthesia she's placed in dorsal lithotomy position. She has a vaginal perineal prep and drape. Examination under anesthesia shows a mid position uterus of normal size. Bladder is drained for 25 mL of clear urine. Weighted speculum was placed posterior vagina. Anterior lip of the cervix is then grasped with an Allis clamp. Uterus is then sounded to 8.5 cm. Gentle dilation is then done to allow the hysteroscope easily into the uterine cavity. Hysteroscopy is performed with saline solution cavity length was measured at 6.0 cm. With this done the hysteroscope was removed. Cervix is dilated more a small curette is easily placed uterine cavity and a gentle 4 quadrant curettage is done for adequate sampling. With this completed, the NovaSure device is then opened and seated in place and opens up to a width of 3.8 cm. After passing the cavity integrity test, it is enabled at 125 W setting for 45 seconds. The NovaSure device is then removed. Appears to be intact. Hysteroscopy is then performed and uterine cavity appears to be ablated up to the endocervix. Excellent results are noted. This point the procedure is ended. All counts correct 3. There are no complications. Patient is awakened from anesthesia and taken recovery room satisfactory condition.
[2022-10-31 08:34] VITALS: RESP 16
[2022-10-31 09:43] VITALS: BP 138/76; PULSE 54
== END 2022-10-31 10:10 | disposition home or self-care (01) ==
LOC: OR 06:23
PROVIDERS: ATTEND Obstetrics & Gynecology
DX: N85.8 Other specified noninflammatory disorders of uterus (principal); D50.0 Iron deficiency anemia secondary to blood loss (chronic); E07.9 Disorder of thyroid, unspecified; F32.A Depression, unspecified; F10.90 Alcohol use, unspecified, uncomplicated; Z87.59 Personal history of other complications of pregnancy, childbirth and the puerperium; Z98.51 Tubal ligation status; Z98.890 Other specified postprocedural states; Z79.899 Other long term (current) drug therapy
CPT/HCPCS: 81025; 88305; 58563; J2250; J1100; J2405; J3010; J1885; J2704; J1170; J2001